=== PATIENT | male | born 1950 | race Caucasian/White ===

== ENCOUNTER 2016-10-16 11:38 | Emergency (ER) | payer MEDICARE, OTHER ==
[~2016-10-16] VITALS: Ht 177.8 cm; Wt 104.3 kg
[2016-10-16] MEDS ORDERED: ASA/500T3 PO (11:57)
--- NOTE | 2016-10-16 12:07 | ED Upper Extremity ---
General Chief Complaint: Upper Extremity Stated Complaint: R HAND SWELLING/PAIN Nursing Triage Note: pt states his right hand and arm have been swollen since last night. pt states he hasn't done anything that he knows of that would of caused his hand to swell like this. pt reports no numbness to the exremity. pt also states he use to take blood pressure medication for hypertension but has stopped taking his medications. Nursing Sepsis Screen: No Definite Risk Source: patient Exam Limitations: no limitations History of Present Illness Time seen by provider: 12:07 Initial Comments Patient noted to have an elevated blood pressure upon admission to the emergency department. Patient states he has a history of high blood pressure, but has not been on medications for approximately 2 years. Has not seen a primary care physician for approximately 2 years. Allergies and Home Medications Allergies Coded Allergies: No Known Drug Allergies (Unverified , 10/16/16) Home Medications ASA/Calcium Carb/Mag/Al Hydrox 500 Mg Tablet, 500 MG PO, (Reported) Indomethacin 50 Mg Capsule, 50 MG PO TID, #30 Ref 0 1 po TID. taper dose rapidly when symptoms improve. Prescribed by: TYRONE LYNCH on 10/16/16 1438 Metoprolol Succinate 50 Mg Tab.er.24h, 50 MG PO DAILY, #30 Ref 0 Prescribed by: TYRONE LYNCH on 10/16/16 1438 Oxycodone HCl/Acetaminophen 1 Each Tablet, 1 EACH PO Q4H PRN for pain, #20 Ref 0 Prescribed by: TYRONE LYNCH on 10/16/16 1438 Past Gjdmsxf-[id number]-Ttibmn Hx Patient Social History Alcohol Use: Regular Use Recreational Drug Use: No Smoking Status: Current Everyday Smoker Type Used: Cigars 2nd Hand Smoke Exposure: Yes Recent Foreign Travel: No Contact w/Someone Who Travel: No Recent Infectious Disease Expo: No Physical Exam Vital Signs Vital Sign - Last 12Hours 10/16/16 11:46 Temp 98.1 Pulse 95 Resp 20 B/P (MAP) 189/123 Pulse Ox 96 O2 Delivery Room Air Capillary Refill : Less Than 3 Seconds Progress/Results/Core Measures Results/Orders Lab Results Laboratory Tests Test 10/16/16 12:02 Range/Units White Blood Count 8.7 4.3-11.0 10^3/uL Red Blood Count 5.02 4.35-5.85 10^6/uL Hemoglobin 15.8 13.3-17.7 G/DL Hematocrit 46 40-54 % Mean Corpuscular Volume 92 80-99 FL Mean Corpuscular Hemoglobin 32 25-34 PG Mean Corpuscular Hemoglobin Concent 34 32-36 G/DL Red Cell Distribution Width 14.3 10.0-14.5 % Platelet Count 235 130-400 10^3/uL Mean Platelet Volume 10.1 7.4-10.4 FL Neutrophils (%) (Auto) 76 H 42-75 % Lymphocytes (%) (Auto) 11 L 12-44 % Monocytes (%) (Auto) 13 H 0-12 % Eosinophils (%) (Auto) 0 0-10 % Basophils (%) (Auto) 0 0-10 % Neutrophils # (Auto) 6.6 1.8-7.8 X 10^3 Lymphocytes # (Auto) 0.9 L 1.0-4.0 X 10^3 Monocytes # (Auto) 1.1 H 0.0-1.0 X 10^3 Eosinophils # (Auto) 0.0 0.0-0.3 10^3/uL Basophils # (Auto) 0.0 0.0-0.1 10^3/uL Erythrocyte Sedimentation Rate 1 0-30 MM/HR Sodium Level 138 135-145 MMOL/L Potassium Level 4.1 3.6-5.0 MMOL/L Chloride Level 105 98-107 MMOL/L Carbon Dioxide Level 21 21-32 MMOL/L Anion Gap 12 5-14 MMOL/L Blood Urea Nitrogen 10 7-18 MG/DL Creatinine 0.87 0.60-1.30 MG/DL Estimat Glomerular Filtration Rate > 60 BUN/Creatinine Ratio 11 Glucose Level 137 H 70-105 MG/DL Uric Acid 5.1 2.6-7.2 MG/DL Calcium Level 9.4 8.5-10.1 MG/DL Total Bilirubin 0.6 0.1-1.0 MG/DL Aspartate Amino Transf (AST/SGOT) 24 5-34 U/L Alanine Aminotransferase (ALT/SGPT) 23 0-55 U/L Alkaline Phosphatase 52 40-136 U/L C-Reactive Protein High Sensitivity 0.73 H 0.00-0.50 MG/DL Total Protein 8.0 6.4-8.2 G/DL Albumin 4.5 3.2-4.5 G/DL Yari LYNCHTYRONE L PA Cbc With Automated Diff (10/16/16 12:13) Comprehensive Metabolic Panel (10/16/16 12:13) Hs C Reactive Protein (10/16/16 12:13) Erythrocyte Sedimentation Rate (10/16/16 12:13) Saline Lock/Iv-Start (10/16/16 12:13) Ketorolac Injection (Toradol Injection) (10/16/16 12:13) Wrist, Right, 3 Views Or More (10/16/16 12:13) Uric Acid (10/16/16 12:44) Morphine Injection (Morphine Injection (10/16/16 13:44) Metoprolol Succinate (Xl) Tab (Toprol Xl (10/16/16 14:45) Vital Signs/I&O Vital Sign - Last 12Hours 10/16/16 11:46 Temp 98.1 Pulse 95 Resp 20 B/P (MAP) 189/123 Pulse Ox 96 O2 Delivery Room Air Blood Pressure Mean: 145 Diagnostic Imaging Diagonstic Imaging: Xray Plain Films/CT/US/NM/MRI: hand Comments FINDINGS: There is no acute fracture or acute bony abnormality. There is degenerative change of the radiocarpal joint and first carpometacarpal joint. There is chronic sclerotic change and lucency in the scaphoid with volume loss and these findings most likely represent avascular necrosis. IMPRESSION: Mixed sclerotic and lytic changes of the scaphoid, most likely resenting avascular necrosis. Underlying osteoarthritic changes as well. No acute fracture. Dictated on workstation # [id number] Reviewed: Reviewed by Me (radiology report reviewed by me. ) Departure Impression Impression: Primary Impression: Gout Qualified Codes: M10.9 - Gout, unspecified Additional Impressions: Avascular necrosis of scaphoid Hypertension Disposition: 01 HOME, SELF-CARE Condition: Improved Departure-Patient Inst. Decision time for Depature: 13:35 Referrals: GERALD OROZCO MD NO,LOCAL PHYSICIAN (PCP) Primary Care Physician Patient Instructions: Gout (DC), High Blood Pressure (DC), Lifestyle Changes to Manage Gout Add. Discharge Instructions: All discharge instructions reviewed with patient and/or family. Voiced understanding. Medications as instructed. Elevate the right hand on pillows. Ice pack or heating pads as needed for pain. Left-handed activities only until improvement in symptoms. Monitor blood pressures your follow-up appointment with your primary care physician of choice. Follow-up with Dr. Orozco or your primary care physician as an outpatient in the next 5-7 days for recheck and further management of your blood pressure. Call for appointment time today. Return to the emergency department for worsened pain, redness, fever, numbness, discoloration, chest pain, shortness of air, headache, dizziness, or any other concerns. Scripts Oxycodone HCl/Acetaminophen (Percocet 5-325 mg Tablet) 1 Each Tablet 1 EACH PO Q4H Y for pain, #20 TAB 0 Refills Prov: TYRONE LYNCH 10/16/16 Indomethacin (Indomethacin) 50 Mg Capsule 50 MG PO TID, #30 CAP 0 Refills 1 po TID. taper dose rapidly when symptoms improve. Prov: TYRONE LYNCH 10/16/16 Metoprolol Succinate (Metoprolol Succinate) 50 Mg Tab.er.24h 50 MG PO DAILY, #30 TAB 0 Refills Prov: TYRONE LYNCH 10/16/16 Work/School Note: [employer] TYRONE LYNCH Oct 16, 2016 12:07
[2016-10-16] MEDS ORDERED: KETOROLAC 30 MG/ML VIAL IVP STA (12:13)
[2016-10-16 12:20] LABS: BASOPHILS % (AUTO) 0 % (0-10); EOSINOPHILS % (AUTO) 0 % (0-10); LYMPHOCYTES # (AUTO) 0.9 X 10^3 (1.0-4.0); LYMPHOCYTES % (AUTO) 11 % (12-44); MEAN CORPUSCULAR HEMOGLOBIN 32 PG (25-34); MEAN CORPUSCULAR HGB CONC 34 G/DL (32-36); MEAN CORPUSCULAR VOLUME 92 FL (80-99); MEAN PLATELET VOLUME 10.1 FL (7.4-10.4); MONOCYTES # (AUTO) 1.1 X 10^3 (0.0-1.0); MONOCYTES % (AUTO) 13 % (0-12); NEUTROPHILS # (AUTO) 6.6 X 10^3 (1.8-7.8); NEUTROPHILS % (AUTO) 76 % (42-75); PLATELET COUNT 235 10^3/uL (130-400); RED BLOOD COUNT 5.02 10^6/uL (4.35-5.85); RED CELL DISTRIBUTION WIDTH 14.3 % (10.0-14.5); WHITE BLOOD COUNT 8.7 10^3/uL (4.3-11.0)
[2016-10-16 12:31] LABS: ALANINE AMINOTRANSFERASE 23 U/L (0-55); ALBUMIN 4.5 G/DL (3.2-4.5); ANION GAP 12 MMOL/L (5-14); ASPARTATE AMINO TRANSFERASE 24 U/L (5-34); BILIRUBIN,TOTAL 0.6 MG/DL (0.1-1.0); BLOOD UREA NITROGEN 10 MG/DL (7-18); BUN/CREATININE RATIO 11; CALCIUM 9.4 MG/DL (8.5-10.1); CARBON DIOXIDE 21 MMOL/L (21-32); CHLORIDE 105 MMOL/L (98-107); CREATININE SERUM 0.87 MG/DL (0.60-1.30); GFR ESTIMATED > 60; GLUCOSE 137 MG/DL (70-105); POTASSIUM 4.1 MMOL/L (3.6-5.0); SODIUM 138 MMOL/L (135-145); hs C REACTIVE PROTEIN 0.73 MG/DL (0.00-0.50)
[2016-10-16 12:38] LABS: ERYTHROCYTE SEDIMENTATION RATE 1 MM/HR (0-30)
--- NOTE | 2016-10-16 13:06 | Diagnostic Imaging Report ---
INDICATION: Pain and swelling in right wrist. AP, oblique, and lateral views of the right wrist are obtained. FINDINGS: There is no acute fracture or acute bony abnormality. There is degenerative change of the radiocarpal joint and first carpometacarpal joint. There is chronic sclerotic change and lucency in the scaphoid with volume loss and these findings most likely represent avascular necrosis. IMPRESSION: Mixed sclerotic and lytic changes of the scaphoid, most likely resenting avascular necrosis. Underlying osteoarthritic changes as well. No acute fracture. Dictated by: Dictated on workstation # [id number]
[2016-10-16] MEDS ORDERED: morphine INJ 10 MG/ML 1ML (SYR OR VIAL) IVP STA (13:44)
[2016-10-16] MEDS ORDERED: OXYC-197 PO (14:38)
[2016-10-16] MEDS ORDERED: METO-272 PO (14:38)
[2016-10-16] MEDS ORDERED: INDO50CA PO (14:38)
[2016-10-16] MEDS ORDERED: meTOproloL SUCCINATE 50 MG (TOPROL XL) TAB PO SCH (14:45)
[2016-10-16 14:54] VITALS: BP 186/107
== END 2016-10-16 14:54 | disposition home or self-care (01) ==
LOC: EDUNIT# 11:38 → ER 11:41
DX: M10.9 Gout, unspecified (principal); M87.9 Osteonecrosis, unspecified; I10 Essential (primary) hypertension; F17.210 Nicotine dependence, cigarettes, uncomplicated
CPT/HCPCS: 36415; 73110; 80053; 84550; 85025; 85652; 86141